=== PATIENT | male | born 1935 | race Caucasian/White ===

== ENCOUNTER 2022-06-22 09:17 | Inpatient (IN) | payer OTHER ==
[~2022-06-22] VITALS: Ht 167.6 cm; Wt 77.1 kg
[2022-06-22 09:31] VITALS: BP_SYST 136
--- NOTE | 2022-06-22 09:31 | NUR ---
Patient to ER bed 7 to gown for evaluation. Side rails up. Report given to JOSE HECTOR.
--- NOTE | 2022-06-22 09:32 | NUR ---
ER at bedside examining patient.
--- NOTE | 2022-06-22 09:46 | NUR ---
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
[2022-06-22 10:06] LABS: BASOPHILS # (AUTO) 0.1 K/uL (0.0-0.2); BASOPHILS % (AUTO) 0.8 % (0.0-2.0); EOSINOPHILS # (AUTO) 0.3 K/uL (0.0-0.4); EOSINOPHILS % (AUTO) 3.1 % (0.0-4.0); HEMATOCRIT 42.1 % (36-54); LYMPHOCYTES # (AUTO) 1.2 K/uL (1.0-5.5); LYMPHOCYTES % (AUTO) 12.9 % (20.5-51.5); MEAN CORPUSCULAR HEMOGLOBIN 31 pg (27-31); MEAN CORPUSCULAR HGB CONC 33 % (32-36); MEAN CORPUSCULAR VOLUME 93 fL (79.0-98.0); MONOCYTES # (AUTO) 1.1 K/uL (0.0-1.0); MONOCYTES % (AUTO) 11.3 % (1.7-9.3); NEUTROPHILS # (AUTO) 6.9 K/uL (1.8-7.7); NEUTROPHILS % (AUTO) 71.9 % (40.0-70.0); PLATELET COUNT (AUTO) 240 K/uL (130-430); RED BLOOD CELL COUNT(AUTO) 4.53 MIL/uL (4.2-6.2); RED CELL DISTRIBUTION WIDTH 12.8 % (9.0-15.0); WHITE BLOOD COUNT (AUTO) 9.6 K/uL (4.8-10.8)
[2022-06-22 10:20] LABS: ANION GAP 8 (5-15); CHLORIDE 106 mmol/L (98-107); CREATININE 1.16 mg/dL (0.55-1.30); GLUCOSE 109 mg/dL (70-99); UREA NITROGEN, BLOOD 18 mg/dL (8-21)
[2022-06-22 10:27] LABS: PROTHROMBIN TIME 10.4 SECS (9.5-12.5)
[2022-06-22 10:31] LABS: ALANINE AMINOTRANSFERASE 19 U/L (12-78); ALBUMIN 3.8 g/dL (3.4-4.8); ASPARTATE AMINOTRANSFERASE 18 U/L (10-37); TOTAL BILIRUBIN 0.6 mg/dL (0.0-1.0)
[2022-06-22] MEDS ORDERED: iohexoL 350 mgI/mL, 100 ML INFUS..BTL IV ONE (10:51)
--- NOTE | 2022-06-22 11:41 | NUR ---
Returned from radiology, back to [facility].
--- NOTE | 2022-06-22 13:28 | NUR ---
PATIENT IN BED ASSISTED WITH URINAL, AWAITING FOR RESULT FOR DISPOSITION.
[2022-06-22] MEDS ORDERED: ONDANSETRON HCL 4 MG/2 ML VIAL IVP PRN (14:15)
--- NOTE | 2022-06-22 14:53 | NUR ---
ADMITTING PHYSICIAN AT BEDSIDE.
--- NOTE | 2022-06-22 15:07 | NUR ---
PATIENT TAKEN TO MRI.
--- NOTE | 2022-06-22 16:30 | NUR ---
ECHOCARDIOGRAM IN PROGRESS.
--- NOTE | 2022-06-22 17:05 | NUR ---
COVID SWAB COLLECTED AND SENT TO LAB.
--- NOTE | 2022-06-22 17:13 | NUR ---
Admit bed requested Patient will be admitted to care of . Admitted to TELE unit. Diagnosis CVA Inpatient (Yes or No) YES Observation (Yes or No) NO Orientation concerns or request close to nursing station (Yes or No) Covid Status PENDING On vent or bipap NO Isolation requirements NO Needs a sitter NO From Home (Yes or if No enter name of facility) Y Requires Dialysis (Yes or No) NO Med Rec Completed (Yes of No) NO
--- NOTE | 2022-06-22 18:08 | NUR ---
Served cardiac dinner tray & helped pt. sit up. He is eating now.
[2022-06-22 21:40] VITALS: BP_SYST 126
[2022-06-22] MEDS: ATORVASTATIN 20 MG TABLET PO SCH (21:43)
--- NOTE | 2022-06-22 23:52 | NUR ---
Patient admitted to room 114 (a). No acute distress noted. Patient alert oriented to self only. No coughing noted during medication administration. Patient ambulates with a steady gait. Skin warm dry and intact. Will continue to monitor.
[2022-06-23 00:42] VITALS: BP_SYST 113
--- NOTE | 2022-06-23 02:52 | NUR ---
CONSULTATION PAGED/CALLED Reason for Consultation: CVA Person Who was Notified: DR KANG VIA TEXT Consulting Physician: Soheila MASON Rod Cup Filler Specialty: Ordering Physician: AIDEN
[2022-06-23 07:04] LABS: BASOPHILS # (AUTO) 0.1 K/uL (0.0-0.2); BASOPHILS % (AUTO) 0.7 % (0.0-2.0); EOSINOPHILS # (AUTO) 0.4 K/uL (0.0-0.4); HEMATOCRIT 41.5 % (36-54); LYMPHOCYTES # (AUTO) 1.6 K/uL (1.0-5.5); LYMPHOCYTES % (AUTO) 17.1 % (20.5-51.5); MEAN CORPUSCULAR HEMOGLOBIN 31 pg (27-31); MEAN CORPUSCULAR HGB CONC 34 % (32-36); MEAN CORPUSCULAR VOLUME 93 fL (79.0-98.0); MONOCYTES # (AUTO) 1.1 K/uL (0.0-1.0); MONOCYTES % (AUTO) 12.5 % (1.7-9.3); NEUTROPHILS % (AUTO) 65.7 % (40.0-70.0); PLATELET COUNT (AUTO) 227 K/uL (130-430); RED BLOOD CELL COUNT(AUTO) 4.46 MIL/uL (4.2-6.2); RED CELL DISTRIBUTION WIDTH 12.8 % (9.0-15.0); WHITE BLOOD COUNT (AUTO) 9.2 K/uL (4.8-10.8)
[2022-06-23 07:36] LABS: ALANINE AMINOTRANSFERASE 20 U/L (12-78); ALBUMIN 3.4 g/dL (3.4-4.8); ANION GAP 7 (5-15); ASPARTATE AMINOTRANSFERASE 21 U/L (10-37); CALCIUM 8.6 mg/dL (8.4-11.0); CHLORIDE 103 mmol/L (98-107); CREATININE 0.96 mg/dL (0.55-1.30); GLUCOSE 95 mg/dL (70-99); TOTAL BILIRUBIN 0.6 mg/dL (0.0-1.0); UREA NITROGEN, BLOOD 20 mg/dL (8-21)
[2022-06-23 08:00] VITALS: BP_SYST 145
[2022-06-23] MEDS ORDERED: CLOPIDOGREL BISULFATE 75 MG TABLET PO SCH (09:00)
[2022-06-23 11:10] VITALS: BP_SYST 149
[2022-06-23] MEDS ORDERED: CLOP75TA32 PO (12:15)
[2022-06-23] MEDS ORDERED: LOSA100T3 PO (12:15)
[2022-06-23] MEDS ORDERED: NOR10 PO (12:15)
[2022-06-23] MEDS ORDERED: FINA5TAB3 PO (12:15)
[2022-06-23] MEDS ORDERED: LATA7.5D OP (12:15)
[2022-06-23] MEDS ORDERED: PRAV40TA63 PO (12:15)
[2022-06-23] MEDS ORDERED: HYDR-4039 PO (12:15)
[2022-06-23] MEDS ORDERED: TAMS-11 PO (12:15)
[2022-06-23] MEDS ORDERED: OMEP20CA15 PO (12:15)
[2022-06-23] MEDS ORDERED: METO25TA3 PO (12:15)
[2022-06-23 16:25] VITALS: BP_SYST 119
[2022-06-23 20:03] VITALS: BP_SYST 149
[2022-06-23] MEDS: ATORVASTATIN 20 MG TABLET PO SCH (20:35)
--- NOTE | 2022-06-23 21:00 | NUR ---
DISCHARGE INSTRUCTIONS GIVEN SALINE LOCK REMOVED DISCHARGE WITH DAUGHTER
== END 2022-06-23 21:30 | disposition home or self-care (01) | DRG 69 ==
LOC: SED 09:17 → STU 14:13
PROVIDERS: ADMIT Family Medicine; ATTEND Family Medicine
DX: G45.9 Transient cerebral ischemic attack, unspecified (principal); I10 Essential (primary) hypertension; Z20.822 Contact with and (suspected) exposure to COVID-19
CPT/HCPCS: 36415; 70450-TC; 70496; 70498; 70551; 71045; 76376; 80053; 82550; 82962; 83605; 83880; 84484; 85025; 85610-TC; 85730-TC; 93005; 93306; 93880; 99285; G0378; Q9967